=== PATIENT | female | born 1975 | race Caucasian/White ===

== ENCOUNTER 2018-07-13 11:31 | Emergency (ER) | payer OTHER, SELFPAY ==
[2018-07-13 11:32] VITALS: BP 118/79; PULSE 74; RESP 16; TEMP 36.2; O2SAT 98; BMI 24.1
--- NOTE | 2018-07-13 12:27 | EKG12_ITS ---
Test Reason : Blood Pressure : / mmHG Vent. Rate : 066 BPM Atrial Rate : 066 BPM P-R Int : 130 ms QRS Dur : 082 ms QT Int : 420 ms P-R-T Axes : 035 076 057 degrees QTc Int : 440 ms Normal sinus rhythm with sinus arrhythmia Normal ECG Confirmed by TALYA GUEVARA, XIOMARA ([id number]), photo editor TAMMY GARCIA ([id number]) on 07/15/2018 1:29:18 PM Referred By: MOLLY Confirmed By:XIOMARA BABIN MD
--- NOTE | 2018-07-13 12:27 | RAD_ITS ---
STUDY: X-RAY CHEST REASON FOR EXAM: Female, 42 years old. Left-sided chest pain. TECHNIQUE: Single portable frontal chest. COMPARISON: November 06, 2016. FINDINGS: The lungs are clear and expanded. There is no demonstrated pleural abnormality. Normal size heart. Normal mediastinum and leatha. Normal visualized pulmonary arteries. Normal visualized aortic arch and descending thoracic aorta. Normal visualized thoracic spine. Normal visualized ribs, clavicles, and shoulders. There is no demonstrated abnormality of the visualized soft tissue structures of the upper abdomen. RAD/Chest 1 View (Portable) IMPRESSION: Stable examination, there is no radiographically evident acute cardiopulmonary disease. Electronically Signed: Dony Nelson MD at 12:52 EDT , Service support ,
[2018-07-13 12:36] VITALS: BP 111/85; PULSE 56; RESP 9; O2SAT 99
[2018-07-13 12:43] LABS: Absolute Lymphocyte Count 1.31 X10^3/ul (0.83-4.51); Absolute Neutrophil Count 2.3 X10^3/uL (2.0-7.7); Basophil# 0.03 X10^3/uL; Basophil% 0.8 % (0-1); Eosinophil# 0.04 X10^3/uL; Hematocrit 37.1 % (37-47); Hemoglobin 12.5 g/dl (12.0-15.0); Lymphocyte # 1.31 X10^3/ul (4.0); Lymphocyte % 33.5 % (19-41); Mean Corp Hgb Conc 33.7 g/gl (32-36); Mean Corpuscular Hgb 29.5 pg (27.0-32.0); Mean Corpuscular Volume 87.5 fL (81-99); Monocyte% 5.1 % (0-10); Neutrophil # 2.33 X10^3/uL (2.7-7.7); Neutrophil % 59.6 % (47-70); Platelet Count 264 K/mm3 (150-450); RBC Distribution Width CV 12.9 % (11.6-14.6); RBC Distribution Width SD 41.6 fl (35.1-43.9); Red Blood Count 4.24 M/mm3 (4.2-5.4); White Blood Count 3.9 K/mm3 (4.4-11.0)
[2018-07-13 12:44] LABS: POSITIVE COUNT NO; POSITIVE DIFFERENTIAL NO; POSITIVE MORPHOLOGY NO
[2018-07-13 12:48] LABS: Anion Gap 3 (5-15); BUN 18 mg/dL (7-18); Calcium,Total 9.2 mg/dL (8.5-10.1); Chloride 110 mmol/L (98-107); EST Glomerular Filtration Rate 73 mL/min (>60); Est Glom Filt Rate - Afr Amer 88 mL/min (>60); Glucose 92 mg/dL (74-106); Potassium 3.9 mmol/L (3.5-5.1); Sodium Level 142 mmol/L (136-145)
[2018-07-13] MEDS: Ketorolac 30 MG/ML Syringe IV (15:17)
[2018-07-13 15:18] VITALS: BP 177/87; PULSE 59; RESP 12; O2SAT 100
--- NOTE | 2018-07-13 15:42 | ED.VISSUMM ---
- ER Visit Summary Date of Service: 07/13/18 Chief Complaint: Left-sided chest wall pain History of Present Illness: The patient is a 42 F history of migraine headaches hypothyroidism and an enlarged parathyroid complaints. Patient states that Friday she started having left-sided chest discomfort around 9 PM. While standing in her kitchen. Denies any dyspnea. No hemoptysis. Describes it as a pressure and a dull ache. No prior history of DVT or PE. Not associated with exertion. She denies her having a stress test. There is no significant family history of clotting disorders or cardiac disease. Does hurt to touch the area. She denies any falls or trauma. No fever cough. No leg pain or swelling. No recent travel, surgery or hospitalization. Physical Examination: Middle-aged female no acute distress. Vital signs are stable and afebrile. Initial blood pressure 118/79. Pulse ox 98% on room air no signs of hypoxia. HEENT exam unremarkable. Neck nontender no JVD. Lungs clear to auscultation bilaterally. Heart regular rhythm no murmur. Chest wall reproducible chest wall tenderness along the left lateral and upper chest. There is no ecchymosis or bruising. No subcu air crepitance. No redness or warmth. No signs of trauma. Heart regular rate and rhythm no murmur. Abdomen soft and nontender normal bowel sounds no peritoneal signs. Patient is moving all 4 extremities. Calves are nontender without edema or cords. Equal symmetrical radial pulses. Neurologically she is awake and alert with no focal motor or sensory deficits. Back exam is nontender. Test Results: White count of 3. Hemoglobin 12. Electrolytes are normal. Chloride of 110. Normal creatinine and gap. Troponin normal. A second troponin was obtained several hours after the first again negative. Chest x-ray 1 view shows no acute abnormality. Normal cardiac silhouette mediastinum read both of myself and radiologist. Emergency Department Course and Treatment: She underwent a cardiac workup. She has no risk factors for a pulmonary embolus. She was given IV Toradol for her pain. Repeat exam patient is doing well at 1539. Treatment Plan: Treated as musculoskeletal chest wall pain. Ice to the area. Motrin for pain and inflammation. Follow-up with her doctor at [facility]. Disposition: Discharge Impression: Acute chest wall pain This note was generated with [employer] dictation software. It may contain incorrect words, spelling, and punctuation that were not noted in review of the chart prior to signing ED Disposition - Plan for ED Patient: Referrals: Care Physician,No Primary [Primary Care Provider] -
--- NOTE | 2018-07-13 15:48 | ED.DCSUM_ITS ---
- ER Visit Summary Date of Service: 07/13/18 Chief Complaint: Left-sided chest wall pain History of Present Illness: The patient is a 42 F history of migraine headaches hypothyroidism and an enlarged parathyroid complaints. Patient states that Friday she started having left-sided chest discomfort around 9 PM. While standing in her kitchen. Denies any dyspnea. No hemoptysis. Describes it as a pressure and a dull ache. No prior history of DVT or PE. Not associated with exertion. She denies her having a stress test. There is no significant family history of clotting disorders or cardiac disease. Does hurt to touch the area. She denies any falls or trauma. No fever cough. No leg pain or swelling. No recent travel, surgery or hospitalization. Physical Examination: Middle-aged female no acute distress. Vital signs are stable and afebrile. Initial blood pressure 118/79. Pulse ox 98% on room air no signs of hypoxia. HEENT exam unremarkable. Neck nontender no JVD. Lungs clear to auscultation bilaterally. Heart regular rhythm no murmur. Chest wall reproducible chest wall tenderness along the left lateral and upper chest. There is no ecchymosis or bruising. No subcu air crepitance. No redness or warmth. No signs of trauma. Heart regular rate and rhythm no murmur. Abdomen soft and nontender normal bowel sounds no peritoneal signs. Patient is moving all 4 extremities. Calves are nontender without edema or cords. Equal symmetrical radial pulses. Neurologically she is awake and alert with no focal motor or sensory deficits. Back exam is nontender. Test Results: White count of 3. Hemoglobin 12. Electrolytes are normal. Chloride of 110. Normal creatinine and gap. Troponin normal. A second troponin was obtained several hours after the first again negative. Chest x-ray 1 view shows no acute abnormality. Normal cardiac silhouette mediastinum read both of myself and radiologist. Emergency Department Course and Treatment: She underwent a cardiac workup. She has no risk factors for a pulmonary embolus. She was given IV Toradol for her pain. Repeat exam patient is doing well at 1539. Treatment Plan: Treated as musculoskeletal chest wall pain. Ice to the area. Motrin for pain and inflammation. Follow-up with her doctor at [facility]. Disposition: Discharge Impression: Acute chest wall pain This note was generated with [employer] dictation software. It may contain incorrect words, spelling, and punctuation that were not noted in review of the chart prior to signing ED Disposition - Plan for ED Patient: Referrals: Care Physician,No Primary [Primary Care Provider] -
--- NOTE | 2018-07-13 15:48 | ED.DEP ---
ED Disposition - Plan for ED Patient: Disposition: Home or Assisted Living Referrals: Katlyn Loaiza DO [STAFF PHYSICIAN] - 1 Week if not improving Additional Instructions: Ice to the chest wall. Motrin for pain and inflammation. Follow-up with your doctor if not improving. This is inflammation of your chest wall not your heart.
[2018-07-13] MEDS: HYDROcodone Bitartrate/Apap 5/325 Tablet PO (15:57)
[2018-07-13 15:58] VITALS: BP 123/86; PULSE 63; RESP 12; O2SAT 99
== END 2018-07-13 16:06 | disposition home or self-care (01) ==
PROVIDERS: Emergency Provider Emergency Medicine
DX: R07.89 Other chest pain (principal); E03.9 Hypothyroidism, unspecified; Z79.899 Other long term (current) drug therapy
CPT/HCPCS: 71045; 80048; 84484; 85025; 93005; 96374; 99285; A4216

== ENCOUNTER → 2019-10-04 12:45 | Outpatient (CLI) | payer OTHER, SELFPAY ==
--- NOTE | 2019-10-04 13:05 | SP.MBSS_ITS ---
PRIMARY / SECONDARY DIAGNOSIS: dysphagia (R13.10) CURRENT DIET (SOLIDS): regular textures (IDDSI: 7) CURRENT DIET (LIQUIDS): thin liquid diets (IDDSI: 0) DENTITION: natural upper / lower dentition MENTAL STATUS: intact RESPIRATORY STATUS: O2 via room air CURRENT FUNCTIONAL AMBULATION CATEGORY (FAC): 5 (ambulator- independent) REASON FOR REFERRAL: The Patient is a 43 year old female referred for a modified barium swallow (MBS) study to objectively assess the Patients oropharyngeal swallow function under fluoroscopy secondary to post prandial globus sensation at times lasting hours following intake, with persisting issues with reflux (recently started PPI within the week); prior issues with lower esophageal segment closure under fluoroscopy (reported by patient); reports issues with reflux at night that reportedly required her friend to slap her back to remove, reports she was unable to breath; motility vs. reflux based symptoms have been present for multiple years, though have worsened over the last few months. MEDICAL HISTORY: Complex migraine, tension type headache, anxiety and depression, hypothyroidism, overweight (BMI 25.0-29.9), tobacco abuse PREVIOUS MODIFIED BARIUM SWALLOW STUDY RESULTS: None ADDITIONAL OBJECTIVE ASSESSMENT RESULTS: 11/06/2016 MRI revealed a nonspecific foci of abnormal T2 hyperintensity with primarily within the white matter of the frontal lobes as well as the periventricular white matter adjacent to the frontal horns of the lateral ventricles; uncertain clinical significance; bilateral maxillary sinus disease; essentially normal MRI of the brain, otherwise; no MR evidence for acute infarct. ASSESSMENT PARAMETERS: The Patient participated in a Modified Barium Swallow (MBS) study on 10/04/2019. This study was recorded in the lateral view and images were sent to PACs for storage. Scoring was completed through each trial using the 8- point Penetration-Aspiration Scale (PAS) and summarized via the Modified Barium Swallow Impairment Profile (MBSImP) and the Bolus Residue Scale (BRS), with severity scoring through the Dysphagia Severity Rating Scale (DSRS) and the Dysphagia Classification Scale (DCS), and recommended diet textures through the International Dysphagia Diet Standardisation Initiative (IDDSI) RESULTS OF THE EVALUATION: The Patient presents with oropharyngeal phase findings grossly within functional limits, with symptoms possibly associated with gastroesophageal phase of intake. OBJECTIVE ASSESSMENT OF SWALLOW FUNCTION (QUANTITATIVE ? PER TRIAL): PENETRATION / ASPIRATION SCALE (SUAREZ): 1 = does not enter airway 2 = enters airway/above vocal folds/ejected 3 = enters airway/above vocal folds/not ejected 4 = enters airway/contacts vocal folds/ejected 5 = enters airway/contacts vocal folds/not ejected 6 = enters airway/below vocal folds/ejected 7 = enters airway/below vocal folds/not ejected despite effort 8 = enters airway/below vocal folds/no effort PENETRATION / ASPIRATION SCALE (SCORE): Thin liquid - 5 mL tsp.: 1 Thin liquids via cup (single sip): 1 Thin liquids via cup (single sip): 1 Thin liquids via cup (single sip): 1 Thin liquids via straw (single sip): 1 Thin liquids via straw (sequential swallows): 1 Pudding via spoon: 1 Regular textured cookie: 1 OBJECTIVE ASSESSMENT OF SWALLOW FUNCTION (QUANTITATIVE ? AGGREGATE): MODIFIED BARIUM SWALLOW IMPAIRMENT PROFILE (MBSImP) LABIAL SEAL: 0 (of 4) no labial escape TONGUE CONTROL: 0 (of 3) cohesive bolus BOLUS PREPARATION / MASTICATION: 1 (of 3) slow prolonged; complete recollection BOLUS TRANSPORT / LINGUAL MOTION: 2 (of 4) slowed motion ORAL RESIDUE: 1 (of 4) trace residue lining oral structures INITIATION OF PHARYNGEAL SWALLOW: 2 (of 4) posterior surface of epiglottis SOFT PALATE ELEVATION: 0 (of 4) no bolus between soft palate & pharyngeal wall LARYNGEAL ELEVATION: 1 (of 3) partial superior movement / approximation ANTERIOR HYOID EXCURSION: 0 (of 2) complete movement EPIGLOTTIC MOVEMENT: 0 (of 2) complete inversion LARYNGEAL VESTIBULE CLOSURE: 0 (of 2) complete closure PHARYNGEAL STRIPPING WAVE: 0 (of 2) present / complete PE SEGMENT OPENIN (of 3) partial distension / duration / obstruction TONGUE BASE RETRACTION: 1 (of 4) trace column of contrast PHARYNGEAL RESIDUE: 1 (of 4) trace residue ESOPHAGEAL BOLUS CLEARANCE: 1 (of 4) esophageal retention BOLUS RESIDUE SCALE (BRS): BRS SCORE: 1 (of 6) BRS SCORE DESCRIPTION: no residue OBJECTIVE ASSESSMENT OF SWALLOW FUNCTION (SEVERITY GRADING): DYSPHAGIA SEVERITY RATING SCALE (DSRS): DSRS CLASSIFICATION: 1 (within functional limits) DSRS CLASSIFICATION CHARACTERISTICS: instrumental exam shows slight deviance from a normal swallow; patient may report a change in sensation during swallow; no change in diet is required. DYSPHAGIA CLASSIFICATION SCALE (DCS): DCS CLASSIFICATION: D0 (normal) DCS CLASSIFICATION CHARACTERISTICS: without stasis or food consistency restrictions OBJECTIVE ASSESSMENT OF SWALLOW FUNCTION (QUALITATIVE): ORAL PREPARATORY PHASE: intentionally prolonged mastication (anticipated issues with clearance) though completely effective; sufficient anterior oral containment during oral manipulation; preserved management of breathing / bolus formation without disrupted E ? S ? E pattern ORAL TRANSITIONAL PHASE: at times purposeful oral phase swallow onset delay (~ 2 seconds in length) again associated with anticipated clearance issues; transportation remains functionally intact; no bolus consolidation impairments; sufficient oral containment across textures with no presence of premature posterior bolus loss PHARYNGEAL PHASE: age appropriate pharyngeal phase synchrony; appropriate hyolaryngeal excursion and laryngeal vestibule closure / pressure; appropriate pharyngeal motility; appropriate velopharyngeal functioning; ESOPHAGEAL PHASE: pharyngeal retention of unknown significance; further workup suggested (upcoming planned esophagram) CONTRIBUTING / COMPLICATING FACTORS AND NOTABLE FINDINGS: noted cervical lordosis somewhat impacting pharyngoesophageal segment opening, may impact pharyngoesophageal motility with larger bolus volumes that are not easily masticated; possible phagophobia (fear of swallowing) component, which is not unreasonable. RESPONSE TO STRATEGIES: all motility based deficits appeared to be managed successfully with liquid chasers INTERVENTION RECOMMENDATIONS AND CONSIDERATIONS: The Patient presents with mastication and deglutition abilities found to be grossly within functional limits, with upcoming esophagram planned to better identify any potential gastroesophageal based motility issues. No further skilled speech-language services warranted at this time targeting dysphagia. POST ASSESSMENT EDUCATION: The results and recommendations were discussed with the Patient immediately following MBS completion, with the Patient verbalizing understanding and agreement with all recommendations and education provided. DIET TEXTURE RECOMMENDATIONS: Will recommend a regular textured (IDDSI: 7), thin liquid diet (IDDSI: 0) diet RECOMMENDED COMPENSATORY STRATEGIES: Liquid chaser at reasonable intervals, seated upright at 90 degrees during PO intake, remain upright for 30-60 minutes post meal (GERD precaution) IMAGE COUNT: [id number] Jacobo Smith M.A., FUENTES-COSMETICS MACHINE OPERATOR, CBIS MBSImP Certified, LSVT Certified [facility] Speech-Language Pathology Department Email: [email or web address]
== END ==
PROVIDERS: PCP Nurse Practitioner Primary Care; Referring Provider Otolaryngology; Visit Provider Otolaryngology
DX: R13.10 Dysphagia, unspecified (principal)
CPT/HCPCS: 74230; 92611

== ENCOUNTER → 2019-10-06 08:29 | Outpatient (CLI) | payer OTHER, SELFPAY ==
--- NOTE | 2019-10-06 08:40 | RAD_ITS ---
STUDY: X-RAY - ESOPHAGUS (BARIUM SWALLOW) WITH FLUOROSCOPY REASON FOR EXAM: Female, 43 years old. DYSPHAGIA, CHOKING, DYSPNEA AFTER EATING AND DRINKING, HX HIATAL HERNIA, PT HAD TEST DONE IN PAST THAT SAID HER STOMACH OPENING DOESN''T CLOSE ALL THE WAY -- 41 FLUORO SEC, 5.74mGy, 19 FLUORO IMAGES TECHNIQUE: 19 view(s) of the esophagus were obtained following swallowing of barium. FLUOROSCOPY TIME (if supplied): (0:41) minutes/seconds COMPARISON: None. FINDINGS: There is no demonstrated esophageal foreign body. There is no demonstrated stricture or mucosal abnormality. Normal gastroesophageal junction, without a demonstrated hiatal hernia. The patient ingested a 12 mm tablet of barium without any difficulty. Normal visualized aortic arch and descending thoracic aorta. Normal visualized pulmonary parenchyma. Normal visualized osseous structures of the thorax. RAD/Esophagus Single Contrast IMPRESSION: Normal plain film x-ray examination (barium swallow) of the esophagus. Electronically Signed: Jorge L Rincon, at 9:59 EDT , Service support ,
== END ==
PROVIDERS: PCP Nurse Practitioner Primary Care; Referring Provider Otolaryngology; Visit Provider Otolaryngology
DX: R13.10 Dysphagia, unspecified (principal)
CPT/HCPCS: 74220

== ENCOUNTER → 2019-11-26 15:41 | Outpatient (CLI) | payer OTHER, SELFPAY ==
--- NOTE | 2019-11-26 | ESO_PTH ---
PATIENT: GHULAM KIMBLE LOC: [facility] U#:[id number] AGE/SX: 49/F ROOM: RE11/26/[address]: Dr. Pawan Ramirez MD : [id number] BED: DIS: SPEC #: [id number] RECD: 11/26/19 15:04 STATUS: VERONICA DAVIS #: [id number] ANA: 11/26/19 00:[address]: Pawan Ramirez DEPT: SURGICAL PATHOLOGY RECD BY: Tal Bonilla ENTERED: 11/30/19 08:31 SP TYPE: CECE LACKEY DR: Jacobo Zavala, BEHAVIORAL HEALTH ASSOCIATE-[facility] Tissues: Esophagus, NOS Procedures: Surgery Specimen Level IV HEADER OPERATION: EGD with biopsies PRE-OP DIAGNOSIS: Dysphagia, GERD TISSUE SUBMITTED: Esophageal biopsies, rule out EE MICROSCOPIC DIAGNOSIS Esophagus, biopsy: Fragments of benign squamous mucosa. No evidence of eosinophilic esophagitis. AM:padmini 12/01/19 MICROSCOPIC DESCRIPTION Slides are reviewed. GROSS DESCRIPTION Received in fixative is one container labeled with the patient's name and designated esophageal biopsy. The specimen consists of multiple irregular fragments of light ness soft tissue that in aggregate measure 0.6 x 0.4 x 0.1 cm. The specimen is totally submitted in one cassette. / SJ:rg 11/30/19 TC:5 CPT: 54138
== END ==
PROVIDERS: PCP Nurse Practitioner Primary Care; Referring Provider Internal Medicine Gastroenterology; Visit Provider Internal Medicine Gastroenterology
DX: R13.10 Dysphagia, unspecified (principal); K21.9 Gastro-esophageal reflux disease without esophagitis
CPT/HCPCS: 88305

== ENCOUNTER 2020-03-04 16:57 | Emergency (ER) | payer OTHER, SELFPAY ==
[2020-03-04 16:59] VITALS: BP 140/52; PULSE 76; RESP 14; TEMP 36.2; O2SAT 100; BMI 38.7
--- NOTE | 2020-03-04 17:18 | EKG12_ITS ---
Test Reason : Blood Pressure : / mmHG Vent. Rate : 057 BPM Atrial Rate : 057 BPM P-R Int : 142 ms QRS Dur : 080 ms QT Int : 444 ms P-R-T Axes : 049 077 060 degrees QTc Int : 432 ms Sinus bradycardia with sinus arrhythmia Otherwise normal ECG Confirmed by TALYA GUEVARA, XIOMARA ([id number]), manager editorial TAMMY GARCIA ([id number]) on 03/08/2020 9:33:08 AM Referred By: LISSET Confirmed By:XIOMARA BABIN MD
--- NOTE | 2020-03-04 17:18 | ED.DCSUM_ITS ---
History of Present Illness Chief Complaint: Other, Pain/Inj Informant: Patient Narrative: 44-year-old female presenting with left-sided rib pain. She states she has been sick with body ache and chills since before . She was seen by her PCP and told she has prepneumonia. She was placed on azithromycin and albuterol inhaler. She states she started to feel better a few days ago and went back to work. 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 She states that she now has left-sided rib pain which is tender to palpation and worse with movement. She denies any cardiac disease. She denies any lung disease. She has not had a fever recently. She is not having severe cough recently. She tested negative for Covid previously. - Past Medical History (1) Hypothyroidism Status: Chronic (2) Tension headache Status: Chronic (3) Migraines Status: Chronic Past Medical History - Allergies and Home Meds Allergies/Adverse Reactions: Allergies amitriptyline Allergy (Verified 03/04/20 16:59) PT UNSURE OF REACTION ciprofloxacin [From Cipro] Allergy (Verified 11/06/16 14:40) Rash ciprofloxacin HCl [From Cipro] Allergy (Verified 11/06/16 14:40) Rash diltiazem Allergy (Verified 03/04/20 16:59) PT UNSURE OF REACTION Primary Care Physician: Jacobo Zavala PLANNING RN, PLANNING RN-C [Primary Care Provider] - Prior records reviewed: Yes Surgical History: noncontributory, - - Several ovarian cyst resected, left oophorectomy, D and E followed by D and C with unclear mesh placement. Lives: Alone Smoking Status: Current every day smoker Alcohol: None Drugs: None - Family History Maternal Family History: Reports: Diabetes, High Cholesterol, Heart Disease, Hypertension Paternal Family History: Reports: Diabetes, High Cholesterol, Heart Disease, Hypertension Review of Systems General: Reports: Chills, Fever - Resolved, Malaise Eyes: Denies: Visual changes - bilaterally, Diplopia ENT: Denies: Rhinorrhea, Sore throat Cardiovascular: Reports: Chest pain - Left-sided lower rib pain. Denies: Palpitations, Heart racing Respiratory: Reports: Dyspnea, Cough Gastrointestinal: Denies: Abdominal pain, Nausea, Vomiting Genitourinary: Denies: Dysuria, Hematuria Musculoskeletal: Reports: Myalgias. Denies: Arthralgias, Neck pain Skin: Denies: Rash, Abscess Neurological: Reports: Headache. Denies: Parasthesia, Numbness Physical Exam Vital Signs/Narrative: Vital Signs Temp Pulse Resp BP Pulse Ox 03/04/20 16:59 97.1 F L 76 14 140/52 H 100 Inital Vital Signs reviewed: Yes General: Well nourished, No Acute Distress Head: Normocephalic, Atraumatic Eyes: Perrl, EOMI ENT: Moist mucous membranes, No rhinorrhea Cardiovascular: Regular rate, Regular rhythm Respiratory: No distress, CTA bilaterally, Chest nontender, - - Tenderness to palpation left lower ribs 11 and 12 laterally. No crepitance or deformity. No bruising. Equal symmetric breath sounds and chest wall rise. Abdomen: Soft, Nontender Back: Negative for: Nontender, Normal Inspection Extremities: Nontender, No edema Skin: Normal color, No rash. Negative for: Cyanosis, Diaphoresis Neurological: Alert, Oriented x3 Psychological: Normal affect, Normal Mood Diagnostic/Tx/Re-eval Clinical Impression(s) from Imaging Studies Chest X-Ray 03/04/20 17:50 IMPRESSION: Small focal early pneumonia in the right lower lobe. Electronically Signed: Connor Lopez MD (Brooks) at 18:17 EST , Service support , Laboratory Data 03/04/20 03/04/20 03/04/20 17:30 17:30 17:30 WBC 5.9 RBC 4.40 Hgb 13.2 Hct 39.8 MCV 90.5 MCH 30.0 MCHC 33.2 RDW Std Deviation 38.8 RDW Coeff of Dereck 11.8 Plt Count 361 MPV 10.1 Immature Gran % (Auto) 0.200 Neut % (Auto) 60.1 Lymph % (Auto) 31.3 [place] % (Auto) 6.0 Eos % (Auto) 1.9 Baso % (Auto) 0.5 Absolute Neuts (auto) 3.5 Absolute Lymphs (auto) 1.83 Nucleated RBC % 0 D-Dimer Quant (PE/DVT) <= 0.27 Sodium 142 Potassium 3.5 Chloride 112 H Carbon Dioxide 26.0 Anion Gap 4 L BUN 13 Creatinine 1.14 H Estim Creat Clear Calc 49.81 Est GFR (MDRD) Af Amer 67 Est GFR (MDRD) Non-Af 55 L BUN/Creatinine Ratio 11.4 Glucose 92 Calcium 8.9 Total Bilirubin 0.30 AST 8 L ALT 16 Alkaline Phosphatase 55 Troponin I < 0.015 Total Protein 7.5 Albumin 4.2 Globulin 3.3 Albumin/Globulin Ratio 1.3 COVID-19 (CRISTI) 03/04/20 03/04/20 17:40 17:40 WBC RBC Hgb Hct MCV MCH MCHC RDW Std Deviation RDW Coeff of Dereck Plt Count MPV Immature Gran % (Auto) Neut % (Auto) Lymph % (Auto) [place] % (Auto) Eos % (Auto) Baso % (Auto) Absolute Neuts (auto) Absolute Lymphs (auto) Nucleated RBC % D-Dimer Quant (PE/DVT) Sodium Potassium Chloride Carbon Dioxide Anion Gap BUN Creatinine Estim Creat Clear Calc Est GFR (MDRD) Af Amer Est GFR (MDRD) Non-Af BUN/Creatinine Ratio Glucose Calcium Total Bilirubin AST ALT Alkaline Phosphatase Troponin I Total Protein Albumin Globulin Albumin/Globulin Ratio COVID-19 (CRISTI) Cancelled Negative - Rhythm Strip Rhythm Strip: Sinus Rhythm Rate: 57 - EKG Initial EKG Interpretation: No Acute Injury Pattern, Sinus Bradycardia - Medical Decision Making 44-year-old female presenting with left rib pain. She states that she previously had a prepneumonia and has been on azithromycin. Today she does not have a cough but she still complains of body aches. Left ribs are tender to palpation. Patient's chest x-ray was interpreted as right lower lobe infiltrate however is unclear if this is the patient's old pneumonia resolving. Patient states he is not coughing or having shortness of breath. EKG is sinus rhythm at 57 bpm without signs of ischemic changes interpreted by myself. Lab work is normal. D-dimer is negative. Troponin is negative for days of pain I do not believe this is cardiac issue and she does not need a delta troponin and EKG. Patient will be sent home with a short supply of pain medication as well as Lidoderm patches. Given patient's findings I will send her home with a [id number] prescription if she starts to have a cough or symptoms. She tested negative for Covid?19. Impression: 1. Left rib pain 2. Myalgias ED Disposition - Plan for ED Patient: Disposition: Home or Assisted Living Instructions: Coronavirus Disease 2019 (COVID-19): Caring for Yourself or Others, Pneumonia, ED Contusion, Rib Prescriptions: Doxycycline 100 mg PO BID #20 cap Transmission Status: Pending to [id number] Lidocaine [Lidoderm Patch] 1 patch TOPICAL DAILY #7 patch Transmission Status: Pending to [id number] Oxycodone HCl/Acetaminophen [Percocet 5/325] 1 tab PO Q6H PRN PRN 3 Days #12 tab PRN Reason: Pain Prescription Printed Referrals: Jacobo Zavala PLANNING RN, PLANNING RN-C [Primary Care Provider] -
[2020-03-04] MEDS: Ondansetron 4 MG/2 ML Vial IV (17:34)
[2020-03-04] MEDS: Morphine 4 MG/ML Syringe IV (17:34)
--- NOTE | 2020-03-04 17:50 | RAD_ITS ---
STUDY: X-RAY CHEST REASON FOR EXAM: Female, 44 years old. sick with pneumonia around [facility], also fell during that time. c/o lt rib pain, cough, body aches. neg covid TECHNIQUE: AP COMPARISON: 07/13/2018 FINDINGS: Small focal area of opacity in the right lung base is new since the prior study. There is no demonstrated pleural abnormality. Normal size heart. Normal mediastinum and leatha. Normal visualized pulmonary arteries. Normal visualized aortic arch and descending thoracic aorta. Normal visualized thoracic spine. Normal visualized ribs, clavicles, and shoulders. There is no demonstrated abnormality of the visualized soft tissue structures of the upper abdomen. RAD/Chest 1 View (Portable) IMPRESSION: Small focal early pneumonia in the right lower lobe. Electronically Signed: Connor Lopez MD (Brooks) at 18:17 EST , Service support ,
[2020-03-04 18:02] LABS: Absolute Lymphocyte Count 1.83 X10^3/uL (0.83-4.51); Absolute Neutrophil Count 3.5 X10^3/uL (2.0-7.7); Basophil# 0.03 X10^3/uL; Basophil% 0.5 % (0-1); Eosinophil# 0.11 X10^3/uL; Eosinophils% 1.9 % (0-5); Hematocrit 39.8 % (37-47); Hemoglobin 13.2 g/dL (12.0-15.0); Lymphocyte # 1.83 X10^3/ul (4.0); Lymphocyte % 31.3 % (19-41); Mean Corp Hgb Conc 33.2 g/dL (32-36); Mean Corpuscular Volume 90.5 fL (81-99); Mean Platelet Vol. 10.1 fl (6.2-12.0); Monocyte# 0.35 X10^3/uL; NRBC Flagged by Analyzer 0 % (0-5); Neutrophil # 3.52 X10^3/uL (2.7-7.7); Neutrophil % 60.1 % (47-70); Platelet Count 361 K/mm3 (150-450); RBC Distribution Width CV 11.8 % (11.6-14.6); RBC Distribution Width SD 38.8 fl (35.1-43.9); White Blood Count 5.9 K/mm3 (4.4-11.0)
[2020-03-04 18:12] LABS: D-Dimer Quantitative (DVT/PE) <= 0.27 FEU/ug/m (0.27-0.49)
[2020-03-04 18:14] LABS: ALB/GLOB Ratio 1.3 RATIO (0.9-2.4); AST(SGOT) 8 U/L (15-37); Alanine Aminotransfer ALT/SGPT 16 U/L (13-56); Albumin, Serum 4.2 g/dL (3.2-5.0); Alkaline Phosphatase 55 U/L (45-117); Anion Gap 4 (5-15); BUN 13 mg/dL (7-18); BUN/Creat Ratio 11.4 RATIO (10-20); Calcium,Total 8.9 mg/dL (8.5-10.1); Chloride 112 mmol/L (98-107); Creatinine, Serum 1.14 mg/dL (0.55-1.02); EST Glomerular Filtration Rate 55 mL/min (>60); Est Glom Filt Rate - Afr Amer 67 mL/min (>60); Estimated Creatinine Clearance 49.81 ml/min; Globulin 3.3 g/dL (2.2-4.2); Glucose 92 mg/dL (74-106); Potassium 3.5 mmol/L (3.5-5.1); Protein, Total 7.5 g/dL (6.4-8.2); Sodium Level 142 mmol/L (136-145)
[2020-03-04 18:41] LABS: Probe Check PASS; Specimen Processing Control PASS
[2020-03-04 18:59] VITALS: BP 132/88; PULSE 61; RESP 16; O2SAT 99
[2020-03-04] MEDS: oxyCODONE 5 MG Tablet PO (19:00)
[2020-03-04] MEDS: Lidocaine 5% Patch 1 PATCH TOPICAL (19:01)
== END 2020-03-04 19:21 | disposition home or self-care (01) ==
PROVIDERS: Emergency Provider Student in an Organized Health Care Education/Training Program; PCP Nurse Practitioner Primary Care
DX: R07.81 Pleurodynia (principal); F17.200 Nicotine dependence, unspecified, uncomplicated
CPT/HCPCS: 71045; 80053; 84484; 85025; 85379; 87040; 87635; 93005; 96374; 96375; 99285; A4216; J2405; U0002

== ENCOUNTER 2022-01-30 19:44 | Emergency (ER) | payer OTHER, SELFPAY ==
[2022-01-30 19:45] VITALS: BP 150/89; PULSE 89; RESP 18; TEMP 36.4; O2SAT 100; BMI 27.1
--- NOTE | 2022-01-30 20:40 | EKG12_ITS ---
Test Reason : chest pressure Blood Pressure : / mmHG Vent. Rate : 077 BPM Atrial Rate : 077 BPM P-R Int : 138 ms QRS Dur : 082 ms QT Int : 404 ms P-R-T Axes : 042 077 056 degrees QTc Int : 457 ms Normal sinus rhythm Normal ECG Confirmed by JENI GUEVARA, JAELYN ([id number]), make up editor TAMMY GARCIA ([id number]) on 02/05/2022 9:32:40 A M Referred By: VIK Confirmed By:ROSALINDA NGO MD
--- NOTE | 2022-01-30 20:41 | ED.VIS.CHEST ---
HPI History of Present Illness Chief Complaint: Chest Other Narrative Narrative: Patient states 1.5 weeks ago she came into the house after taking the garbage out and collapsed without any prodromal symptoms. She remembers falling with her left elbow into her left lower anterior rib cage, and sustaining pain/injury in that area as a result when she fell, she thinks she passed out. This is the first time she has presented for this since this injury, she has been having pain in her ribs now wrapping around the affected level/rib to her below the scapula, it hurts to move and to breathe, and it is not getting better. For separate reasons, she was referred by her doctor to a box spring frame builder because of concern for CAD. For the past 1.5 weeks she has been having pressure substernal that gets worse when she lies down. [facility] Medical History (Updated 01/30/22 @ 22:[address] Jason Bueno MD) Anxiety and depression Hypothyroidism Migraines Home Medications alprazolam 0.5 mg tablet 0.5 mg PO QHS PRN PRN Anxiety 11/06/16 [History Last Taken 11/06/16 13:15] levothyroxine 50 mcg tablet 50 mcg PO DAILY@0600 #30 tabs 11/08/16 [Rx Last Taken Unknown] doxycycline monohydrate 100 mg capsule 100 mg PO BID #20 caps 03/04/20 [Rx Last Taken Unknown] lidocaine 5 % topical patch 1 patch topical DAILY #7 patches 03/04/20 [Rx Last Taken Unknown] tramadol 50 mg tablet 50 mg PO Q6H PRN pain 3 days #12 tabs 01/30/22 [Rx Last Taken Unknown] Allergy/AdvReac Type Severity Reaction Status Date / Time amitriptyline Allergy PT UNSURE Verified 01/30/22 19:44 OF REACTION ciprofloxacin [From Cipro] Allergy Rash Verified 01/30/22 19:44 ciprofloxacin HCl Allergy Rash Verified 01/30/22 19:44 [From Cipro] diltiazem Allergy PT UNSURE Verified 01/30/22 19:44 OF REACTION Social History Smoking Status: Current every day smoker tobacco type: e-cigarettes ROS ROS ED Constitutional Constitutional ED: Denies chills or fever(s) Eyes Eyes: Denies change in vision or diplopia ENT ENT ED: Denies rhinorrhea or sore throat Cardiovascular Cardiovascular: Reports as per HPI, chest pain and syncope; Denies flutter in chest, palpitations or pedal edema Respiratory/Chest Respiratory/Chest: Denies cough or dyspnea Gastrointestinal Gastrointestinal: Reports nausea, vomiting and other Details: Vomited earlier today because of the severe pain ; Denies abdominal pain or diarrhea Genitourinary Genitourinary ED: Denies dysuria or hematuria Musculoskeletal Musculoskeletal: Reports as per HPI; Denies back pain, extremity pain or neck pain Integumentary Denies abscess or rash Neurologic Neurologic: Denies headache(s), paresthesias or weakness Psychiatric Psychiatric: Denies anxiety or suicidal thoughts EXAM Physical Exam Const Vital Signs: 01/30/22 19:45 Temperature 97.6 F L Temperature Source Temporal Pulse Rate 89 Respiratory Rate 18 Blood Pressure 150/89 H Blood Pressure Mean 109 Pulse Ox 100 Oxygen Delivery Method Room Air Positive well nourished and well developed General Appearance ED: well developed and NAD HEENT Reports moist mucous membranes normocephalic and atraumatic Eyes PERRL and EOMs intact bilaterally Neck full ROM and supple Chest Wall inspection of chest normal Chest Narrative: Tender throughout left lower rib cage, from inframammary chest wall down to the costal margin. No crepitance or obvious step-off, no subcutaneous emphysema. Tender all the way around throughout these ribs to the ribs caudal to the scapular tip, no spinal tenderness. Equal breath sounds bilaterally. Chest: tenderness Resp normal respiratory effort and clear to auscultation bilaterally Cardio regular rate, regular rhythm and no murmurs GI non-tender and non-distended Auscultation: normoactive bowel sounds Palpation: soft Back/Spine no CVA tenderness Back/Spine Narrative: Tender in the left mid posterior rib cage caudal to the scapular tip, no spinal tenderness General Back: other Limited range of motion due to pain Extremity normal to inspection General Extremety ED: Negative for edema, pulses abnormal or tenderness General Extremity: Negative for edema or pulses abnormal Neuro oriented x3, CN's II-XII intact bilaterally and no sensory deficits noted Sensorium / Orientation: awake and alert Motor Exam: strength 5/5 throughout Skin no rashes or lesions noted and no wounds Heart Score History: Slightly/Non-Suspicious ECG: Normal Age: >45 - <65 years Risk Factors: 1 or 2 Risk Factors Troponin: </= Normal Limit Score: 2 MDM MDM MDM Narrative Medical decision making narrative: 5 view x-ray series of the lungs, left ribs, all normal on my interpretation. Radiology in agreement. Given her other chest symptoms we obtained a cardiac work-up, it is normal as well. Patient was given pain and nausea medications which helped. She is reassured, prescribed analgesics, advised to follow-up if she is not improving after another week or so, we discussed the possibility of nondisplaced rib fractures, but more likely just of blunt chest wall contusion. Lab Data Attestation: I reviewed the patient's lab results. Labs: Laboratory Results - last 24 hr 01/30/22 01/30/22 20:56 20:56 WBC 6.3 RBC 4.17 L Hgb 12.5 Hct 37.4 MCV 89.7 MCH 30.0 MCHC 33.4 RDW Std Deviation 39.9 RDW Coeff of Dereck 12.2 Plt Count 334 MPV 9.8 Immature Gran % (Auto) 0.200 Neut % (Auto) 57.0 Lymph % (Auto) 32.5 Andrew % (Auto) 8.0 Eos % (Auto) 1.8 Baso % (Auto) 0.5 Absolute Neuts (auto) 3.6 Absolute Lymphs (auto) 2.04 Nucleated RBC % 0 Sodium 144 Potassium 4.1 Chloride 112 H Carbon Dioxide 28.0 Anion Gap 4 L BUN 23 H Creatinine 0.93 Estim Creat Clear Calc 57.04 Est GFR (MDRD) Af Amer 83 Est GFR (MDRD) Non-Af 69 BUN/Creatinine Ratio 24.7 H Glucose 125 H Calcium 9.4 Troponin I High Sens 4 Radiography Diagnostic Testing: Clinical Impression(s) from Imaging Studies Ribs w/Chest X-Ray 01/30/22 21:20 IMPRESSION: RIBS: Normal x-ray examination of the ribs. CHEST: Normal x-ray examination of the chest. Electronically Signed: Jah Brooks MD at 21:44 EST , Rhythm Strip Rhythm Strip: Sinus Rhythm Rate: 77 Ectopy: None EKG Initial EKG: Attestation: I personally reviewed and interpreted this EKG as follows: Interpretation: Sinus Rhythm and No Acute Injury Pattern Comments: Normal EKG Discharge Plan Triage Chief Complaint: Chest Other ED Provider: Jason Bueno Dx/Rx/DC Orders Clinical Impression: Substernal chest pain, Contusion of left chest wall, Syncope and collapse Instructions: ED Bruise, Rib Prescriptions: New tramadol 50 MG tablet 50 mg PO Q6H PRN (Reason: pain) 3 Days Qty: 12 0RF No Action alprazolam 0.5 MG tablet 0.5 mg PO QHS PRN PRN (Reason: Anxiety) Rx Instructions: Anxiety levothyroxine 50 MCG tablet 50 mcg PO DAILY@0600 Qty: 30 0RF lidocaine 1 PATCH patch 1 patch TOPICAL DAILY Qty: 7 0RF Rx Instructions: Use 1 patch topically to your left ribs daily. He should be used on 12 hours and off 12 hours. doxycycline monohydrate 100 MG capsule 100 mg PO BID Qty: 20 0RF Primary Care Provider: Suzan Reddy NP Referrals: Suzan Reddy NP, USER INTERFACE ARTIST-C [Primary Care Provider] - 1 Week if not improving Disposition Disposition: Home, Self Care
[2022-01-30] MEDS: Ondansetron 4 MG/2 ML Vial IV (20:52)
[2022-01-30] MEDS: Morphine 4 MG/ML Syringe IV (20:52)
[2022-01-30 21:04] LABS: Absolute Lymphocyte Count 2.04 X10^3/uL (0.83-4.51); Absolute Neutrophil Count 3.6 X10^3/uL (2.0-7.7); Basophil# 0.03 X10^3/uL; Basophil% 0.5 % (0-1); Eosinophil# 0.11 X10^3/uL; Eosinophils% 1.8 % (0-5); Hematocrit 37.4 % (37-47); Hemoglobin 12.5 g/dL (12.0-15.0); Lymphocyte # 2.04 X10^3/ul (0.83-4.51); Lymphocyte % 32.5 % (19-41); Mean Corp Hgb Conc 33.4 g/dL (32-36); Mean Corpuscular Volume 89.7 fL (81-99); Mean Platelet Vol. 9.8 fl (6.2-12.0); NRBC Flagged by Analyzer 0 % (0-5); Neutrophil # 3.58 X10^3/uL (2.7-7.7); Platelet Count 334 K/mm3 (150-450); RBC Distribution Width CV 12.2 % (11.6-14.6); RBC Distribution Width SD 39.9 fl (35.1-43.9); Red Blood Count 4.17 M/mm3 (4.2-5.4); White Blood Count 6.3 K/mm3 (4.4-11.0)
--- NOTE | 2022-01-30 21:20 | RAD_ITS ---
STUDY: X-RAY - UNILATERAL RIBS ( LEFT ) WITH CHEST REASON FOR EXAM: Female, 46 years old. pain/injury TECHNIQUE - RIBS: 4 view(s) of the ribs. TECHNIQUE - CHEST: PA COMPARISON: None. FINDINGS - RIBS: Normal visualized ribs without a demonstrated fracture. FINDINGS - CHEST: The lungs are clear and expanded. There is no demonstrated pleural abnormality. Normal size heart. Normal mediastinum and leatha. Normal visualized pulmonary arteries. Normal visualized aortic arch and descending thoracic aorta. Normal visualized thoracic spine. Normal visualized ribs, clavicles, and shoulders. There is no demonstrated abnormality of the visualized soft tissue structures of the upper abdomen. RAD/Ribs Uni Min 3V w/PA Chest IMPRESSION: RIBS: Normal x-ray examination of the ribs. CHEST: Normal x-ray examination of the chest. Electronically Signed: Jah Brooks MD at 21:44 EST ,
[2022-01-30 21:24] LABS: Anion Gap 4 (5-15); BUN 23 mg/dL (7-18); BUN/Creat Ratio 24.7 RATIO (10-20); Calcium,Total 9.4 mg/dL (8.5-10.1); Chloride 112 mmol/L (98-107); Creatinine, Serum 0.93 mg/dL (0.55-1.02); EST Glomerular Filtration Rate 69 mL/min (>60); Est Glom Filt Rate - Afr Amer 83 mL/min (>60); Estimated Creatinine Clearance 57.04 ml/min; Glucose 125 mg/dL (74-106); Potassium 4.1 mmol/L (3.5-5.1); Sodium Level 144 mmol/L (136-145); Troponin-I HS 4 pg/mL (3.0-54.0)
== END 2022-01-30 22:25 | disposition home or self-care (01) ==
PROVIDERS: Emergency Provider Emergency Medicine; PCP Registered Nurse; Visit Provider Emergency Medicine
DX: R07.2 Precordial pain (principal); S20.20XA Contusion of thorax, unspecified, initial encounter; R55 Syncope and collapse; F17.290 Nicotine dependence, other tobacco product, uncomplicated; W19.XXXA Unspecified fall, initial encounter
CPT/HCPCS: 71101; 80048; 84484; 85025; 93005; 96374; 96375; 99284; A4216; J2405

== ENCOUNTER → 2022-02-20 | Outpatient (CLI) | payer OTHER, SELFPAY ==
[2022-02-20 13:20] VITALS: BP 124/76; PULSE 57; RESP 16; TEMP 37; O2SAT 98; BMI 26.0
--- NOTE | 2022-02-20 13:21 | CT_ITS ---
STUDY: CTA CORONARY REASON FOR EXAM: Female, 46 years old. CHEST PAIN.. OVER READ ONLY RADIATION DOSAGE (If Supplied By Facility): CTDIvol = ( 37.58 ) mGy, DLP = ( 1200.81 ) mGycm TECHNIQUE: Tomographic images were obtained of the heart and chest with a 64 detector row scanner using slice thicknesses of less than 1 mm. IV 57mL [id number] was injected in the arm. Post-processing of the angiographic images was performed, with multiplanar reformation and 3D reconstruction. Individualized dose optimization techniques were used for this CT. VISUALIZED LUNG PARENCHYMA, MEDIASTINUM AND CHEST WALL: Normal. CT/Limited Chest CT Cardiac Only IMPRESSION: Cardiac or repeat examination. No abnormalities seen within the visualized mediastinum, hilar regions or lungs. Electronically Signed: Jorge L Rincon MD at 14:52 EST ,
[2022-02-20 13:40] VITALS: BP 124/76; PULSE 57
[2022-02-20] MEDS: Nitroglycerin SL (ED/IMG/CATH) 0.4 MG TABLET SL (13:40)
[2022-02-20 13:47] VITALS: BP 117/75; PULSE 65; RESP 14; O2SAT 97
--- NOTE | 2022-02-20 13:48 | NURSING ---
Patient c/o dizziness after CCTA. VS stable. Patient able to stand steadily to dress self. Pt to elevator via WC with s.o.
--- NOTE | 2022-02-20 17:52 | CCTA.WCONT ---
CCTA w/Cont Coronary Arteries Date of Study:: 02/20/22 Chest Pain; Hyperlipidemia Consent:: Per Patient The patient underwent coronary artery CTA with particular attention paid to the coronary arteries for the evaluation of underlying atherosclerotic coronary artery disease. The patient tolerated the procedure well with no report of any obvious adverse effects/complications. Of note: Technical adequacy: Does demonstrate an area of misregistration artifact. LEFT MAIN CORONARY ARTERY: The left main coronary artery appears to be a large vessel giving rise to the left anterior descending and left circumflex coronary arteries. The left main coronary artery appears to be patent with no angiographically significant appearing coronary artery disease. LEFT ANTERIOR DESCENDING CORONARY ARTERY: The left anterior descending coronary artery appears to be a large vessel coursing to the LV apex. The left anterior descending coronary artery appears to be patent with notation of an area in the midportion of misregistration artifact and otherwise with no angiographically significant appearing coronary artery disease. LEFT CIRCUMFLEX CORONARY ARTERY: The left circumflex coronary artery appears to be a large vessel giving rise to a first obtuse marginal branch and a second obtuse marginal branch. The left circumflex coronary artery appears to be patent with no angiographically significant appearing coronary artery disease. RIGHT CORONARY ARTERY: The right coronary artery appears to be a large dominant vessel giving rise to the right PDA. The right coronary artery appears to be patent with notation of an area in the proximal portion of misregistration artifact and otherwise with no angiographically significant appearing coronary artery disease. THORACIC AORTA: The thoracic aorta appears to be patent with no evidence of peripheral atherosclerotic disease. PULMONARY ARTERY: The main pulmonary artery and proximal portions of the right and left pulmonary artery appear to be patent with no obvious filling defects. LEFT ATRIUM/APPENDAGE: The left atrial appendage appears to be patent with no obvious filling defects. MITRAL VALVE: The mitral valve appears to be bileaflet structure. AORTIC VALVE: The aortic valve appears to be a trileaflet structure. LEFT VENTRICLE: The left ventricle appears to demonstrate normal left ventricular systolic function. The left ventricular ejection fraction is reported at 70%. CORONARY CALCIUM SCORE: A coronary calcium score was not obtained. This note was generated using a voice recognition system and there may be incorrect words, spelling or punctuation that were not noted when reviewing the office note prior to saving.
== END | disposition home or self-care (01) ==
LOC: CT 13:06
PROVIDERS: PCP Registered Nurse; Referring Provider Nurse Practitioner Family; Visit Provider Nurse Practitioner Family
DX: R07.9 Chest pain, unspecified (principal); E78.5 Hyperlipidemia, unspecified
CPT/HCPCS: 75574; 76380; Q9967; A4216

== ENCOUNTER 2022-08-11 20:36 | Emergency (ER) | payer OTHER, SELFPAY ==
[2022-08-11 20:37] VITALS: BP 158/97; PULSE 73; RESP 16; TEMP 36.8; O2SAT 100; BMI 25.7
--- NOTE | 2022-08-11 20:47 | EX.ED.UPPERE ---
HPI <YUSUF Wu - Last Filed: 08/11/22 20:52> History of Present Illness Chief Complaint: Upper Extremity Injury Narrative Narrative: Patient is a 46-year-old female history of anxiety, lipidemia, hypothyroidism presents the emergency department with worsening right elbow pain. Patient states that she was pulling up her pants 4 weeks ago and struck a countertop with elbow. Patient states it was not that bad at the time. Patient states over the last couple weeks has been much worse. She has worsening pain with rotation. She denies any other injury. PFSH <YUSUF Wu - Last Filed: 08/11/22 20:52> PFSH Medical History (Updated 08/11/22 @ 21:02 by YUSUF Wu) Anxiety and depression Bipolar disorder Former smoker Hypothyroidism Kidney disease Kidney stones Migraines Home Medications alprazolam 0.5 mg tablet 0.5 mg PO QHS PRN PRN Anxiety 11/06/16 [History Last Taken 11/06/16 13:15] levothyroxine 50 mcg tablet 75 mcg PO DAILY@0600 02/20/22 [History Last Taken Unknown] omeprazole 40 mg capsule,delayed release 40 mg PO DAILY 02/20/22 [History Last Taken Unknown] rosuvastatin 5 mg tablet 5 mg PO DAILY 02/20/22 [History Last Taken Unknown] THRIVE VITAMIN 08/11/22 [History Last Taken Unknown] Allergy/AdvReac Type Severity Reaction Status Date / Time amitriptyline Allergy PT UNSURE Verified 08/11/22 20:38 OF REACTION ciprofloxacin [From Cipro] Allergy Rash Verified 08/11/22 20:38 ciprofloxacin HCl Allergy Rash Verified 08/11/22 20:38 [From Cipro] diltiazem Allergy PT UNSURE Verified 08/11/22 20:38 OF REACTION Family History (Updated 02/20/22 @ 13:25 by Courtney Cole) Other CAD (coronary artery disease) Surgical History (Updated 02/20/22 @ 13:25 by Courtney Cole) History of left oophorectomy Social History Smoking Status: Former smoker ROS <YUSUF Wu - Last Filed: 08/11/22 20:52> ROS ED ROS Narrative Constitutional: Negative for fever, chills, weight loss, weakness Eyes: Negative for vision loss, vision change, double vision ENT: Negative for any sore throat, ear pain, congestion Cardiovascular: Negative for any chest pain, tightness, palpitations Respiratory: Negative for any cough, sputum production, hemoptysis, dyspnea, dyspnea on exertion, orthopnea Gastrointestinal: Negative for any abdominal pain, nausea, vomiting, diarrhea, constipation, blood in stool, blood in vomit : Negative for any urinary frequency, dysuria, retention, blood in urine Muscle skeletal: Negative for any muscle joint pain, stiffness, myalgias, arthralgias, neck pain, back pain. Positive right elbow pain Neurological: Negative for any headache, syncope, numbness or tingling, dizziness Skin: Negative for any rashes, lumps, itching, abrasions, lacerations Psychiatric: Negative for any depression, anxiety, stress, suicidal ideation, homicidal ideation Hematologic: Negative for any easy bruising, excessive bruising, easy bleeding Allergies: Negative for any eczema, hives, rash EXAM <YUSUF Wu - Last Filed: 08/11/22 20:52> Physical Exam Narrative Exam Narrative: Vital signs reviewed. Extremities: No peripheral edema, no signs of gross trauma or deformity. Active full range of motion of all extremities. Patient has tenderness to the electron fossa. Patient is able to flex and extend with minimal discomfort. Patient has worsening pain with supination and pronation, no neurological focal deficit. Hand chicken tender. +2 radial pulse. Neuro: Cranial nerves II through XII intact, no focal neurological deficits. Skin: Clean dry and intact with no rash, purpura, petechiae, vesicles or pustules. Backs/flank: No CVA tenderness, no midline spinal tenderness, no deformity. Psych: Normal mood and affect. No SI, HI or acute psychosis. Const Vital Signs: 08/11/22 20:37 Temperature 98.2 F Temperature Source Temporal Pulse Rate 73 Respiratory Rate 16 Blood Pressure 158/97 H Blood Pressure Mean 117 Pulse Ox 100 Oxygen Delivery Method Room Air MDM <YUSUF Wu - Last Filed: 08/11/22 20:52> MDM Treatment and Re-Evaluation Narrative: All radiologic examinations were read, reviewed by the emergency department attending. From these reads, a plan of care will be put in place. Patient appears well, patient appears nontoxic, vital signs are stable. Patient presents to the emergency department with complaints of right elbow pain after bumping it on a countertop 4 weeks ago. Patient's physical examination is not consistent with a fracture, is more consistent with possible nerve impingement. Patient did receive x-rays of the right elbow. Patient has no neurological focal deficit. <Dr. Wilbur Damon, DO - Last Filed: 08/11/22 21:30> [facility] Narrative Medical decision making narrative: Patient appears well, patient appears nontoxic, vital signs are stable. Patient presents to the emergency department with complaints of right elbow pain after bumping it on a countertop 4 weeks ago. Patient's physical examination is not consistent with a fracture, is more consistent with possible nerve impingement. Patient did receive x-rays of the right elbow. Patient has no neurological focal deficit. This patient was seen with a PA/DERMATOLOGY SALES REPRESENTATIVE Individually assessed they patient including history and physical. I have reviewed everything on the chart that is available and agree with the documentation provided by the PA/DERMATOLOGY SALES REPRESENTATIVE including discussion about the assessment, treatment plan, discussion, and return precautions. Patient seen and evaluated for right elbow pain which has been going on for weeks. There is no obvious deformity. There are some pain with range of motion. I do not suspect a septic joint. X-ray of the right elbow on my interpretation shows no acute fracture or subluxation. After further discussion the patient does do a lot of twisting she states the juices and she also has to twist lids off jars. 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 I suspect she might have some tendinitis also. States she cannot take anti-inflammatories because of her kidneys. I recommended Tylenol, ice. She was given orthopedic follow-up Discharge Plan Triage Chief Complaint: Upper Extremity Injury ED Midlevel Provider: Jalil Sheikh ED Provider: Wilbur Damon Dx/Rx/DC Orders Clinical Impression: Elbow contusion Prescriptions: No Action alprazolam 0.5 MG tablet 0.5 mg PO QHS PRN PRN (Reason: Anxiety) Rx Instructions: Anxiety omeprazole 40 mg Capsule,Delayed Release(Dr/Ec) 40 mg PO DAILY rosuvastatin 5 mg Tablet 5 mg PO DAILY levothyroxine 50 MCG tablet 75 mcg PO DAILY@0600 THRIVE VITAMIN Primary Care Provider: Suzan Reddy DERMATOLOGY SALES REPRESENTATIVE Referrals: Adriano Leonardo MD [Med Staff - Active Staff] - 3-5 Days Suzan Reddy NP, DERMATOLOGY SALES REPRESENTATIVE-C [Primary Care Provider] - Disposition Disposition: Home, Self Care
--- NOTE | 2022-08-11 20:53 | RAD_ITS ---
INDICATION: pain EXAMINATION/TECHNIQUE: X-RAY - RIGHT XR Elbow Min 3 Views COMPARISON: None. FINDINGS: 3 views the right elbow. BONES: Normal anatomic alignment without evidence of fracture or subluxation. No concerning bony lesion or abnormal sclerosis to suggest lesion. JOINTS: No significant degenerative change. SOFT TISSUES: Unremarkable. RAD/Elbow min 3 Views IMPRESSION: No acute osseous abnormality of the right elbow. Electronically Signed: Rigoberto Monroe MD at 21:10 EDT ,
[2022-08-11 21:25] VITALS: BP 166/68; BP 166/98; PULSE 75; PULSE 78; RESP 16; O2SAT 94; O2SAT 98
== END 2022-08-11 21:32 | disposition home or self-care (01) ==
PROVIDERS: Emergency Provider Student in an Organized Health Care Education/Training Program; PCP Registered Nurse; Visit Provider Student in an Organized Health Care Education/Training Program
DX: S50.01XA Contusion of right elbow, initial encounter (principal); Z87.891 Personal history of nicotine dependence; F41.8 Other specified anxiety disorders; Z79.899 Other long term (current) drug therapy; E03.9 Hypothyroidism, unspecified; W22.09XA Striking against other stationary object, initial encounter; Y93.89 Activity, other specified
CPT/HCPCS: 73080; 99282